=== PATIENT | female | born 1995 | race Caucasian/White ===

== ENCOUNTER 2017-03-27 16:36 | Emergency (ER) | payer SELFPAY ==
[~2017-03-27] VITALS: Ht 129.5 cm; Wt 54.4 kg
[2017-03-27 18:10] LABS: UA SPECIFIC GRAVITY 1.015 (1.005-1.035); microscopic required? YES; urine erythrocyte 1+ (NEGATIVE)
[2017-03-27 18:11] LABS: BASOPHIL % 0.4 % (0-2); PLATELET COUNT 319 x10^3mcL (130-400); RED CELL DISTRIBUTION WIDTH 12.9 % (11.5-14.5)
[2017-03-27 18:17] LABS: CALCIUM 8.8 mg/dL (8.5-10.1); CARBON DIOXIDE 28.5 mmol/L (21-32); CHLORIDE SERUM 106 mmol/L (98-107); CREATININE SERUM 0.6 mg/dL (0.6-1.0); GFR1 > 60 mL/min; GLUCOSE SERUM 97 mg/dL (74-106); POTASSIUM SERUM 3.9 mmol/L (3.5-5.1); SODIUM SERUM 142 mmol/L (136-145)
[2017-03-27 18:21] LABS: ALKALINE PHOSPHATASE 91 U/L (46-116); ALT/SGPT 31 U/L (14-59); AMYLASE 43 U/L (25-115); AST/SGOT 23 U/L (15-37); BILIRUBIN TOTAL 0.3 mg/dL (0.20-1.00); LIPASE 92 IU/L (73-393); TOTAL PROTEIN, SERUM 7.6 g/dL (6.4-8.2)
[2017-03-27 19:44] VITALS: BP 112/70
== END 2017-03-27 19:44 | disposition home or self-care (01) ==
LOC: ED 16:36
PROVIDERS: Emergency Medicine
DX: R10.9 Unspecified abdominal pain (principal)
CPT/HCPCS: J1885; J7030

== ENCOUNTER 2019-12-16 22:00 | Emergency (ER) | payer MEDICAID ==
[~2019-12-16] VITALS: Ht 149.9 cm; Wt 60.8 kg
[2019-12-16 22:04] VITALS: Ht 149.9 cm; Wt 60.8 kg
[2019-12-16 22:54] VITALS: BP 130/65
== END 2019-12-16 22:54 | disposition home or self-care (01) ==
LOC: ED 22:00
DX: H66.91 Otitis media, unspecified, right ear (principal)